=== PATIENT | male | born 1975 | race Caucasian/White ===

== ENCOUNTER 2017-02-26 08:26 | Emergency (ER) | payer OTHER ==
[2017-02-26 08:50] VITALS: BP 113/71
--- NOTE | 2017-02-26 09:04 | UC ---
Skin Complaint HPI - History of Current Complaint Hx Obtained From: Patient Onset/Duration: Sudden Onset - states removed tick on L side 2 days ago. Pt is sure the tick was present less than 24hours no rash or joint pain Skin Exposure Onset/Duration: Days Ago Onset Severity: Mild Current Severity: None Location: Discrete - L side trunk Character: Redness - small area redness at tick bite site Aggravating: Nothing Alleviating: Nothing Associated Signs & Symptoms: Positive: Negative Related History: Insect Bite/Sting <Kimmie Marlow - Last Filed: 02/26/17 09:04> <Ale Celis - Last Filed: 02/26/17 10:21> - History of Current Complaint Chief Complaint: [employer] Stated Complaint: TICK BITE - Allergy/Home Medications Allergies/Adverse Reactions: Allergies Allergy/AdvReac Type Severity Reaction Status Date / Time No Known Allergies Allergy Verified 02/26/17 08:40 Home Medications: Home Medications Citalopram TAB* [Celexa TAB*] 1 tab PO DAILY 02/26/17 [History Confirmed ] Review of Systems Constitutional: Negative Skin: Other - tick bite Respiratory: Negative Cardiovascular: Negative Musculoskeletal: Negative Neurological: Negative Psychological: Negative All Other Systems Reviewed And Are Negative: Yes <Kimmie Marlow - Last Filed: 02/26/17 09:04> PMH/Surg Hx/FS Hx/Imm Hx Previously Healthy: Yes Endocrine History Of: Denies: Diabetes, Thyroid Disease Cardiovascular History Of: Denies: Cardiac Disorders, Hypertension Respiratory History Of: Denies: COPD, Asthma GI/ History Of: Denies: Ulcer Psychological History Of: Reports: Anxiety, Depression - Surgical History Surgical History: Yes Surgery Procedure, Year, and Place: fatty cyst removed from forehead 2000 [facility] [place] - Family History Known Family History: Positive: None - Social History Occupation: Employed Full-time - construction Lives: With Family Alcohol Use: Weekly Alcohol Amount: 2x/week Substance Use Type: None Smoking Status (MU): Never Smoked Tobacco <Kimmie Marlow - Last Filed: 02/26/17 09:04> Physical Exam Triage Information Reviewed: Yes Appearance: Well-Appearing, No Pain Distress, Well-Nourished Vital Signs: Initial Vital Signs Temp 98.8 F 02/26/17 08:41 Pulse 61 02/26/17 08:41 Resp 16 02/26/17 08:41 BP 113/71 02/26/17 08:41 Pulse Ox 98 02/26/17 08:41 Vital Signs Reviewed: Yes Neck: Positive: No Lymphadenopathy Respiratory Exam: Normal Cardiovascular Exam: Normal Musculoskeletal Exam: Normal Neurological Exam: Normal Psychological Exam: Normal <Kimmie Marlow - Last Filed: 02/26/17 09:04> Vital Signs: Initial Vital Signs Temp 98.8 F 02/26/17 08:41 Pulse 61 02/26/17 08:41 Resp 16 02/26/17 08:41 BP 113/71 02/26/17 08:41 Pulse Ox 98 02/26/17 08:41 <Ale Celis - Last Filed: 02/26/17 10:21> Course/Dx - Differential Diagnoses - Skin Complaint Differential Diagnoses: Foreign Body, Tick Born Illness - Diagnoses Provider Diagnoses: tick bite <24h <Kimmie Marlow - Last Filed: 02/26/17 09:04> Discharge <Kimmie Marlow - Last Filed: 02/26/17 09:04> <Ale Celis - Last Filed: 02/26/17 10:21> - Discharge Plan Condition: Good Disposition: HOME Patient Education Materials: Tick Bite (ED) Referrals: Pedro Alanis MD [Medical Doctor] - Additional Instructions: keep area clean and dry Report signs Lyme diseasae should they occur (bullseye rash, joint pain, fever are some) Attestation Statement User Type: Provider - I was available for consult. This patient was seen by the [facility]. The patient was not presented to, seen by, or examined by me. <Ale Celis - Last Filed: 02/26/17 10:21>
== END 2017-02-26 09:05 | disposition home or self-care (01) ==
LOC: UCEAST 08:26
DX: S30.861A Insect bite (nonvenomous) of abdominal wall, initial encounter (principal); W57.XXXA Bitten or stung by nonvenomous insect and other nonvenomous arthropods, initial encounter; F41.9 Anxiety disorder, unspecified; F32.9 Major depressive disorder, single episode, unspecified
CPT/HCPCS: 99211; G0463

== ENCOUNTER 2018-05-17 12:15 | Emergency (ER) | payer OTHER ==
--- NOTE | 2018-05-17 12:23 | UC ---
Respiratory Complaint HPI - HPI Summary HPI Summary: 42 yo male presents with fatigue, diffuse joint pain, chills, headache, and loose stools since last night. Canby better with ibuprofen this morning. Has felt feverish, but has not taken his temperature. He is eating and drinking, but says he doesn't feel hungry. He and his are very concerned about lyme disease because pt had similar symptoms about 2 years ago and has been bitten by many ticks in the past - has never noticed a rash. Pt tells me that he was feeling fine before yesterday. Currently denies sore throat, cough, SOB, chest pain, vomiting, or urinary symptoms. - History of Current Complaint Hx Obtained From: Patient Onset/Duration: Sudden Onset Severity Initially: Moderate Severity Currently: Moderate Pain Intensity: 5 Pain Scale Used: 0-10 Numeric <Wilfred Boucher - Last Filed: 05/17/18 13:02> <Ale Celis - Last Filed: 05/17/18 13:09> - History of Current Complaint Stated Complaint: FLU LIKE SYMPTOMS Time Seen by Provider: 05/17/18 12:22 - Allergies/Home Medications Allergies/Adverse Reactions: Allergies Allergy/AdvReac Type Severity Reaction Status Date / Time No Known Allergies Allergy Verified 05/17/18 12:33 Home Medications: Home Medications Naproxen Sodium [Aleve] 220 mg PO ONCE PRN 05/17/18 [History Confirmed 05/17/18] PMH/Surg Hx/FS Hx/Imm Hx Previously Healthy: Yes Psychological History: Anxiety - Surgical History Surgical History: Yes Surgery Procedure, Year, and Place: fatty cyst removed from forehead 2000 [facility] – [place] - Family History Known Family History: Positive: None - Social History Occupation: Employed Full-time Lives: With Family Alcohol Use: Weekly Alcohol Amount: 2x/week Substance Use Type: None Smoking Status (MU): Never Smoked Tobacco <Wilfred Boucher - Last Filed: 05/17/18 13:02> Review of Systems Constitutional: Fatigue, Other - Body aches Skin: Negative Eyes: Negative ENT: Negative Respiratory: Negative Cardiovascular: Negative Gastrointestinal: Diarrhea Neurovascular: Negative Musculoskeletal: Negative Neurological: Headache Psychological: Negative All Other Systems Reviewed And Are Negative: Yes <Wilfred Boucher - Last Filed: 05/17/18 13:02> Physical Exam - Summary Physical Exam Summary: GENERAL: NAD. WDWN. SKIN: No rashes, sores, lesions, or open wounds. HEENT: Head: AT/NC Eyes: EOM intact. Conjunctiva clear without inflammation or discharge. Ears: Hearing grossly normal. TMs intact, no bulging, erythema, or edema. Nose: Nasal mucosa pink and moist. NTTP maxillary and frontal sinus. Throat: Posterior oropharynx without exudates, erythema, or tonsillar enlargement. Uvula midline. NECK: Supple. Nontender. No lymphadenopathy. CHEST: CTAB. No r/r/w. No accessory muscle use. Breathing comfortably and in no distress. CV: RRR. Without m/r/g. Pulses intact. Brisk cap refill. ABDOMEN: Soft. NTTP. No distention or guarding. No organomegaly. No CVA tenderness. Bowel sounds present NEURO: Alert. CN II-XII grossly intact. PSYCH: Age appropriate behavior. Triage Information Reviewed: Yes Vital Signs: Vital Signs: Temp Pulse Resp BP Pulse Ox 98.8 F 91 16 135/69 99 05/17/18 12:20 05/17/18 12:20 05/17/18 12:20 05/17/18 12:20 05/17/18 12:20 <Wilfred Boucher - Last Filed: 05/17/18 13:02> Vital Signs: Initial Vital Signs Temp 98.8 F 05/17/18 12:20 Pulse 91 05/17/18 12:20 Resp 16 05/17/18 12:20 BP 135/69 05/17/18 12:20 Pulse Ox 99 05/17/18 12:20 <Ale Celis - Last Filed: 05/17/18 13:09> Respiratory Course/Dx - Course Course Of Treatment: Suspect viral gastroenteritis. Will test for lyme at pt's request. Rest, fluids, ibuprofen prn and zofran prn. - Differential Dx/Diagnosis Provider Diagnoses: Viral gastroenteritis <Wilfred Boucher - Last Filed: 05/17/18 13:02> Discharge - Sign-Out/Discharge Documenting (check all that apply): Discharge/Admit/Transfer - Billing Disposition and Condition Condition: STABLE Disposition: Home <Wilfred Boucher - Last Filed: 05/17/18 13:02> - Billing Disposition and Condition Condition: STABLE Disposition: Home <Ale Celis - Last Filed: 05/17/18 13:09> - Discharge Plan Condition: Stable Disposition: HOME Prescriptions: Ondansetron ODT TAB* [Zofran 4 MG Odt TAB*] 4 mg PO Q8H PRN #16 tab.odt PRN Reason: Nausea Patient Education Materials: Viral Syndrome (ED) Referrals: Jose Campoverde MD [Primary Care Provider] - Jose TOLBERT,Marshall Warren [Medical Doctor] - If Needed Additional Instructions: If you develop a fever, shortness of breath, chest pain, new or worsening symptoms - please call your PCP or go to the ED. 1) If you are concerned about other illnesses or if the Lyme comes back positive - please follow up with Dr. Garcia at the number below Attestation Statement User Type: Provider - I was available for consult. This patient was seen by the [facility]. The patient was not presented to, seen by, or examined by me. -Ljj <Ale Celis - Last Filed: 05/17/18 13:09>
[2018-05-17 12:30] VITALS: BP 135/69
== END 2018-05-17 12:48 | disposition home or self-care (01) ==
LOC: UCEAST 12:15
DX: A08.4 Viral intestinal infection, unspecified (principal); R51 Headache; M25.50 Pain in unspecified joint; R53.83 Other fatigue
CPT/HCPCS: 86618; 99212; G0463

== ENCOUNTER 2020-08-18 18:10 | Inpatient (IN) ==
[2020-08-18 19:46] LABS: Urine Appearance Cloudy; Urine Bilirubin Negative (Negative); Urine Blood Negative (Negative); Urine Color Yellow; Urine Glucose Negative (Negative); Urine Ketones Negative (Negative); Urine Nitrite Negative (Negative); Urine Protein Negative (Negative); Urine Specific Gravity 1.024 (1.010-1.030); Urine Urobilinogen Negative (Negative)
[2020-08-18 20:13] LABS: Urine Benzodiazepine Screen Presumptive Positive (None Detect); Urine Cannabinoids Screen None Detected (None Detect); Urine Opiates Screen None Detected (None Detect)
[2020-08-18 23:54] LABS: ABS Eosinophils 0.1 10^3/ul (0-0.6); ABS Lymphocytes 3.2 10^3/ul (1.0-4.8); ABS Monocytes 0.5 10^3/ul (0-0.8); ABS Neutrophils 2.3 10^3/ul (1.5-7.7); Eosinophil % 1.6 %; Hematocrit 38 % (42-52); Hemoglobin 12.8 g/dL (14.0-18.0); Lymphocyte % 52.8 %; Mean Corpuscular HGB Conc 34 g/dL (31-36); Mean Corpuscular Hemoglobin 30 pg (27-31); Mean Corpuscular Volume 87 fL (80-94); Mean Platelet Volume 8.1 fL (7.4-10.4); Nucleated Red Blood Cells % 0.1; Platelet Count 250 10^3/uL (150-450); Red Blood Count 4.35 10^6 /uL (4.18-5.48); Red Cell Distribution Width 13 % (10-15)
[2020-08-19 00:09] LABS: ALT 14 U/L (7-52); AST 16 U/L (13-39); Albumin 4.1 g/dL (3.2-5.2); Albumin/Globulin Ratio 1.7 (1-3); Alkaline Phosphatase 60 U/L (34-104); Anion Gap 4 mmol/L (2-11); BUN/Creatinine Ratio 16.4 (8-20); Blood Urea Nitrogen 12 mg/dL (6-24); CO2 Carbon Dioxide 29 mmol/L (22-32); Calcium 8.7 mg/dL (8.6-10.3); Chloride 106 mmol/L (101-111); EGFR African American 139.4 (>60); EGFR Non-African American 115.2 (>60); Globulin 2.4 g/dL (2-4); Glucose 91 mg/dL (70-100); Potassium 3.8 mmol/L (3.5-5.0); Sodium 139 mmol/L (135-145); Total Protein 6.5 g/dL (6.4-8.9)
[2020-08-19 00:35] LABS: Acetaminophen < 15 mcg/mL
[2020-08-19 00:50] LABS: TSH Ultra Thyroid Stim Horm 1.44 mcIU/mL (0.34-5.60)
[2020-08-19 01:38] LABS: Alcohol, S < 10 mg/dL (<10); Salicylate < 2.50 mg/dL (<30)
[2020-08-19] MEDS ORDERED: Al Hydrox/Mg Hydrox/Simet LIQ 30 ML UDC PO PRN (02:09)
[2020-08-19 03:42] LABS: Salicylate < 2.50 mg/dL (<30)
[2020-08-19] MEDS: Vitamin THERAPEUTIC TAB PO SCH (09:19)
[2020-08-20] MEDS: Vitamin THERAPEUTIC TAB PO SCH (09:14)
[2020-08-21] MEDS: Vitamin THERAPEUTIC TAB PO SCH (09:03)
[2020-08-22 08:58] LABS: HDL Cholesterol 33.6 mg/dL
[2020-08-22] MEDS: Vitamin THERAPEUTIC TAB PO SCH (09:12)
[2020-08-22 09:45] VITALS: BP 114/66
== END 2020-08-22 15:15 | disposition home or self-care (01) | DRG 885 ==
LOC: ED 18:10 → BSU 22:20
PROVIDERS: ADMIT Psychiatry & Neurology Psychiatry; ATTEND Psychiatry & Neurology Psychiatry